=== PATIENT | female | born 1945 | race Caucasian/White ===

== ENCOUNTER → 2017-11-14 | Day surgery (SDC) | payer BC, SELFPAY | END | disposition home or self-care (01) | PROVIDERS: PCP Physician Assistant; Visit Provider Surgery | DX: Z12.11 Encounter for screening for malignant neoplasm of colon (principal); K57.30 Diverticulosis of large intestine without perforation or abscess without bleeding; K64.1 Second degree hemorrhoids | CPT/HCPCS: 45378; 99152; 99153; J2250; J2405; J3010 ==

== ENCOUNTER 2018-03-06 20:50 | Emergency (ER) | payer BC, SELFPAY ==
[2018-03-06 21:05] VITALS: BP 203/90; PULSE 87; RESP 20; TEMP 36.7; O2SAT 99; BMI 22.6
--- NOTE | 2018-03-06 21:19 | DI.CT.S_ITS ---
PROCEDURE: CT HEAD/BRAIN WO CON INDICATIONS: fall loc TECHNIQUE: Noncontrast 4.5 mm thick angled axial sections acquired from the foramen magnum to the vertex, with coronal and sagittal reformats. For radiation dose reduction, the following was used: automated exposure control, adjustment of mA and/or kV according to patient size. COMPARISON: None. FINDINGS: Image quality: Excellent. CSF spaces: Basal cisterns are patent. No extra-axial fluid collections. The ventricles are symmetric in size and shape. Brain: No intracranial bleeds or masses. There is cerebral volume loss for age, with resultant ventricular and sulcal prominence. There are periventricular and deep white matter chronic small vessel ischemic changes. There is intracranial internal carotid artery atherosclerosis. Skull and face: Calvarium and visualized facial bones appear intact, without suspicious lesions. Scalp laceration high midline posterior parietal area with slight subcutaneous gas. Sinuses: Visualized sinuses and mastoids are clear. IMPRESSION: No skull or brain parenchymal trauma found. Focal laceration to the midline high posterior parietal scalp. No underlying skull fracture found a small amount of gas in the soft tissues is noted. Note: These findings are concordant with the preliminary interpretation. Dictated by: Fabio Stanley M.D. on 03/07/2018 at 8:09 Approved by: Fabio Stanley M.D. on 03/07/2018 at 8:11
--- NOTE | 2018-03-06 21:19 | DI.CT.S_ITS ---
PROCEDURE: CT CERVICAL SPINE WO CON INDICATIONS: fall backwards,hit head TECHNIQUE: Noncontrast 3 mm thick sections acquired from the skull base to the T4 level. Sagittal and coronal reformats were then constructed. For radiation dose reduction, the following was used: automated exposure control, adjustment of mA and/or kV according to patient size. COMPARISON: None. FINDINGS: Image quality: Excellent. Bones: No fractures or dislocations. Visualized superior ribs are intact. Soft tissues: Prevertebral soft tissues are normal in thickness. No paravertebral hematomas. No apical pneumothoraces. IMPRESSION: No trauma found. Note: These findings are concordant with the preliminary interpretation. Dictated by: Fabio Stanley M.D. on 03/07/2018 at 8:11 Approved by: Fabio Stanley M.D. on 03/07/2018 at 8:16
--- NOTE | 2018-03-06 21:19 | ED_ITS ---
HPI - Fall General Chief Complaint: Fall Stated Complaint: FELL AND HIT BACK OF HEAD Time Seen by Provider: 03/06/18 21:14 Source: patient Mode of arrival: ambulatory Limitations: no limitations History of Present Illness HPI Narrative: Patient is a 72-year-old female who presents after a mechanical ground level fall. She stepped backwards on uneven cement is a she mostly fell onto her bottom and then fell promptly back hitting her head. Possible brief loss of consciousness. Now having severe headache and nausea. No weakness numbness or tingling. Her sacral area is also hurting her. She is ambulatory afterwards. complaint: fall Onset (ago): minute(s) Related Data Home Medications Medication Instructions Recorded Confirmed . (No Home Medications) #0 11/05/03 IBUPROFEN (Motrin / Advil) #0 11/05/03 NITROGLYCERIN (Nitrostat) #0 11/05/03 OMEPRAZOLE (Prilosec) #0 11/05/03 celecoxib [Celebrex] 100 mg PO [facility] #0 11/14/17 Allergies Allergy/AdvReac Type Severity Reaction Status Date / Time codeine Allergy Verified 03/06/18 21:05 Review of Systems Review of Systems All systems reviewed & are unremarkable except as noted in HPI and below Constitutional Denies chills, Denies fever(s), Reports headache(s), Denies lethargy and Denies weakness Eyes Denies change in vision, Denies eye discharge, Denies irritation and Denies loss of vision ENT Ears, Nose, Mouth, and Throat: Denies facial pain, Reports headache(s), Denies mouth pain and Denies neck pain Respiratory Denies cough and Denies stridor Gastrointestinal Gastrointestinal: Denies abdominal pain, Denies diarrhea and Denies vomiting Musculoskeletal Denies deformity, Reports arthralgias (right wrist pain) and Denies neck pain Integumentary/Breasts Reports system reviewed and no additional complaints, except as docu Neurologic Reports headache(s), Denies loss of vision and Denies weakness Exam Initial Vital Signs Initial Vital Signs: Vital Signs Temperature 98.0 F 03/06/18 21:05 Pulse Rate 87 03/06/18 21:05 Respiratory Rate 20 03/06/18 21:05 Blood Pressure 203/90 H 03/06/18 21:05 Pulse Oximetry 99 03/06/18 21:05 Const General: cooperative, healthy appearing and comfortable Orientation: alert, awake and oriented x3 HENMT Head: normocephalic (No crepitations no depression), laceration (Posterior scalp 1 and 0.5 cm), scalp lesion and scalp tenderness (posterior over laceration) Neck Neck: normal visual inspection, full ROM and trachea midline Chest Chest: normal inspection of the chest Resp Effort & Inspection: normal respiratory effort and able to speak in complete sentences Auscultation: clear to auscultation bilaterally Cardio Rate: regular rate Rhythm: regular rhythm Heart Sounds: S1 normal and S2 normal GI Palpation: No firm, No guarding and No tender Back/Spine/Pelvis Cervical Spine: normal cervical lordosis, cervical ROM normal, No cervical spinal tenderness and No step off deformity Thoracic/Lumbar Spine: thoracic and lumbar spine normal to inspection and other (Abrasion noted over spinal process is in thoracic region is) Sacrum: tenderness Skin General: No erythema Trauma: laceration (Posterior scalp) Neuro General: alert, awake and oriented x3 Cranial Nerves: CN's II-XI intact bilaterally Cognition: normal cognition Speech: speech normal Gait: normal gait Motor: muscle tone normal throughout and strength 5/5 throughout Sensory Exam: no sensory deficits noted Extrem General: normal to inspection Right upper extremity: normal to inspection Left upper extremity: normal to inspection Right lower extremity: normal to inspection Left lower extremity: normal to inspection [facility] Medical History Healthy adult (Acute) Social History marital status: other: works for [employer] Smoking Status: Never smoker Procedures Laceration Repair Laceration 1: Site: scalp Size (cm): 1.5 Description: linear Depth: simple, single layer Pre-repair: wound explored Skin layer closed with: other (Collins:# 2) Course Orders Ordered: ED Orders 03/06/18 21:19 CT cervical spine wo con Stat CT head/brain wo con Stat Discontinued Medications Acetaminophen (Tylenol) 650 mg PO NOW ONE Stop: 03/06/18 21:22 Last Admin: 03/06/18 21:26 Dose: 650 mg Diphtheria/Tetanus/Acell Pertussis (Adacel) 0.5 ml IM .ONCE ONE Stop: 03/06/18 23:32 Last Admin: 03/06/18 23:39 Dose: 0.5 ml Vital Signs - 8 hr 03/06/18 21:05 03/06/18 21:30 03/06/18 23:09 Temperature 98.0 F Pulse Rate 87 67 Respiratory Rate 20 14 Blood Pressure 203/90 H Blood Pressure [Right Arm] 156/74 H 143/68 H Pulse Oximetry 99 100 [facility] - Fall Imaging Data CT scan - head: 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 Scalp injury above. Posterior scalp injury with laceration contusion and foci of soft tissue emphysema. 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 [facility] Narrative Medical decision making narrative: Patient has no nausea vomiting. she does have a mild headache which she says Tylenol has helped a lot. Sacral x-ray was ordered all however unfortunately is did not get done. At the time of discharge patient is is standing. She is now stating that she does not want or need of a sacral x-ray. She is ambulatory and weight-bearing. I discussed all findings with the patient and spouse, Education has been performed regarding treatment plan, diagnosis, warning signs and symptoms and all concerns have been addressed. Verbally agree with and understood all of the above. Discharge Plan Departure Patient Disposition: Home, Self-Care Clinical Impression: Laceration of scalp, Closed head injury Discharge Date/Time: 03/06/18 23:50 Interventions: ED Discharge Assessment Last Done: 03/06/18 23:50 Instructions: DI for Laceration Repair -- Collins, Closed Head Injury Activity Restrictions/Additional Instructions: *You have been diagnosed with a closed head injury, scalp laceration *What to do: May wash hair with soap and water Have deacon removed in 5-7 days *Continue to take medications as directed -Tylenol or ibuprofen as directed if needed for pain *Follow up with your primary care provider in 2-3 days *Return to ER if you should have persistent vomiting, increasing headache, or any new, worsening or concerning symptoms Prescriptions: No Action . (No Home Medications) Qty: 0 RF: 0 IBUPROFEN (Motrin / Advil) Qty: 0 RF: 0 OMEPRAZOLE (Prilosec) Qty: 0 RF: 0 NITROGLYCERIN (Nitrostat) Qty: 0 RF: 0 celecoxib [Celebrex] 100 MG capsule 100 mg PO [facility] Qty: 0 RF: 0 Referrals: Ansley Armstrong PA-C [Primary Care Provider] - Stand Alone Forms: Work/School Restrictions
[2018-03-06] MEDS: ACETAMINOPHEN 325 MG TABLET 650 MG PO (21:26)
[2018-03-06 21:30] VITALS: BP 156/74
[2018-03-06 23:09] VITALS: BP 143/68; PULSE 67; RESP 14; O2SAT 100
[2018-03-06] MEDS: TET,DIPH,PERTUSS(ACELL),VAC/PF 0.5 ML SYRINGE IM (23:39)
== END 2018-03-06 23:50 | disposition home or self-care (01) ==
PROVIDERS: Emergency Provider Emergency Medicine; Family Provider Physician Assistant; PCP Physician Assistant
DX: S01.01XA Laceration without foreign body of scalp, initial encounter (principal); S09.90XA Unspecified injury of head, initial encounter; W18.30XA Fall on same level, unspecified, initial encounter
CPT/HCPCS: 12001; 70450; 72125; 90471; 99283; 90715

== ENCOUNTER → 2018-03-19 13:39 | Outpatient (CLI) | payer BC, SELFPAY ==
--- NOTE | 2018-03-19 | DI.RAD.S_ITS ---
PROCEDURE: XR WRIST RT MIN 3V INDICATIONS: RIGHT WRIST PAIN TECHNIQUE: 4 views of the wrist were acquired. COMPARISON: None. FINDINGS: Bones: No fractures or dislocations. No suspicious bony lesions. Moderate wrist osteoarthritis is present, best seen at the base of the first proximal phalanx and first metacarpal and along the inter-phalangeal joints distally. Scaphoid view: No trauma Soft tissues: No suspicious soft tissue calcifications. IMPRESSION: Osteoarthritic change but no trauma found. Dictated by: Fabio Stanley M.D. on 03/19/2018 at 15:41 Approved by: Fabio Stanley M.D. on 03/19/2018 at 15:41
== END ==
PROVIDERS: Family Provider Physician Assistant; PCP Physician Assistant; Visit Provider Physician Assistant
DX: M25.531 Pain in right wrist (principal); M19.031 Primary osteoarthritis, right wrist
CPT/HCPCS: 73110

== ENCOUNTER 2018-10-03 10:23 | Emergency (ER) | payer BC, SELFPAY ==
[2018-10-03 10:34] VITALS: BP 148/93; PULSE 90; RESP 16; TEMP 36.8; O2SAT 98; BMI 21.9
--- NOTE | 2018-10-03 12:06 | ED.HA ---
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 She was recently placed on Xarelto a few weeks ago due to the DVT. She states that her symptoms in her legs are improved with no pain or swelling at this timeframe. She is currently being followed by Dr. Scott for the DVT vein clinic in [place]. She called their office today and told her of her symptoms and was instructed to come to the emergency room for further evaluation. She is ambulatory in the emergency room. She denies any weakness to the extremities or any neurological deficits. No fevers no chills. She denies any trauma to the head. She is tolerating p.o. intake. No nausea or vomiting. She denies having any dysuria or urinary frequency. Pain is to the back of her head and is dull at this timeframe. She reports that the headache has been worse over the past couple of days but improved today she denies any stressors or relievers of her headache. No chest pain no shortness of breath. Complaint: headache Related Data Home Medications Medication Instructions Recorded Confirmed Vitamin D3 1 cap PO DAILY 10/03/18 10/03/18 ascorbic acid (vitamin C) 1 tab PO DAILY 10/03/18 10/03/18 calcium carbonate 1 tab PO DAILY 10/03/18 10/03/18 multivitamin 1 tab PO DAILY 10/03/18 10/03/18 rivaroxaban [Xarelto] 15 mg PO BID 10/03/18 10/03/18 Allergies Allergy/AdvReac Type Severity Reaction Status Date / Time codeine Allergy Verified 10/03/18 10:34 Review of Systems <MURPHY Caballero - Last Filed: 10/03/18 22:31> Constitutional Denies chills, Denies fever(s), Reports headache(s), Denies lethargy and Denies weakness Eyes Denies change in vision, Denies eye discharge, Denies irritation and Denies loss of vision ENT Ears, Nose, Mouth, and Throat: Denies change in voice, Reports headache(s), Denies neck pain and Denies sore throat Cardiovascular Denies chest pain, Denies irregular heart rhythm, Denies lightheadedness, Denies palpitations, Denies dyspnea, Denies dyspnea on exertion and Denies orthopnea Respiratory Denies cough, Denies dyspnea, Denies dyspnea on exertion and Denies wheezing Gastrointestinal Comments: Blood in stool Genitourinary Comments: Blood in urine Musculoskeletal Denies neck pain Integumentary/Breasts Denies pruritus, Denies erythema, Denies rash and Denies wounds Neurologic Reports headache(s), Denies loss of vision and Denies weakness Endocrine Denies palpitations Hematologic/Lymphatic Denies easy bruising Allergic/Immunologic Denies wheezing PFSH <MURPHY Caballero - Last Filed: 10/03/18 22:31> Medical History Healthy adult (Acute) Social History marital status: other: [place] Smoking Status: Never smoker Social History marital status: other: [place] Smoking Status: Never smoker Exam <MURPHY Caballero - Last Filed: 10/03/18 22:31> Initial Vital Signs Initial Vital Signs: Vital Signs Temperature 98.3 F 10/03/18 10:34 Pulse Rate 90 10/03/18 10:34 Respiratory Rate 16 10/03/18 10:34 Blood Pressure 148/93 H 10/03/18 10:34 Pulse Oximetry 98 10/03/18 10:34 Const General: cooperative and well developed Nutritional Appearance: well nourished Orientation: alert, awake, oriented x3 and not confused HENOR Mouth: oral mucosae normal and moist mucous membranes Eyes Conjunctivae: conjunctivae normal Sclera: sclerae normal Pupils: PERRL EOM: EOM intact bilaterally Neck Neck: normal visual inspection, trachea midline, No lymphadenopathy, No midline deformity and No JVD Lymphatic: No lymphedema Resp Effort & Inspection: normal respiratory effort, able to speak in complete sentences, no respiratory distress and no use of accessory muscles Auscultation: clear to auscultation bilaterally, no rales, no rhonchi and no wheezes Cardio Rate: regular rate Rhythm: regular rhythm Heart Sounds: no click, no gallops, no murmurs and no rubs Pulses: normal peripheral pulses Skin General: no rashes or lesions noted, No jaundice and No petechiae Neuro General: alert, oriented x3, gait normal and no focal motor deficits Speech: speech normal <Krystal Darden DO - Last Filed: 10/05/18 11:20> Initial Vital Signs Initial Vital Signs: Vital Signs Temperature 98.3 F 10/03/18 10:34 Pulse Rate 90 10/03/18 10:34 Respiratory Rate 16 10/03/18 10:34 Blood Pressure 148/93 H 10/03/18 10:34 Pulse Oximetry 98 10/03/18 10:34 Scores <MURPHY Caballero - Last Filed: 10/03/18 22:31> NIH Stroke Scale Level of Conciousness: Alert, keenly responsive Ask month/age: Answers both questions correctly. Open/close eyes, close hand: Performs both tasks correctly Best gaze horizontal: Normal Visual joseph: No visual loss Facial palsy: Normal symetrical movement Left arm drift: No drift for full 10 sec Right arm drift: No drift for full 10 sec Left leg drift: No drift for full 10 sec Right leg drift: No drift for full 10 sec Limb ataxia: Absent Sensory on face/arms/legs: Normal, no sensory loss Best language: No aphasia, normal Dysarthria: Normal Extinction or inattention: No abnormality Total NIH Stroke scale score: 0 Course <MURPHY Caballero - Last Filed: 10/03/18 22:31> Orders Ordered: ED Orders 10/03/18 11:30 Urine Microscopic Stat 10/03/18 12:32 CT head/brain wo con Stat 10/03/18 12:45 Complete Blood Count AUTO DIFF Stat Comprehensive Metabolic Panel Stat Prothrombin Time INR Stat Vital Signs - 8 hr 10/03/18 10:34 Temperature 98.3 F Pulse Rate 90 Respiratory Rate 16 Blood Pressure 148/93 H Pulse Oximetry 98 <Krystal Darden DO - Last Filed: 10/05/18 11:20> Orders Ordered: ED Orders 10/03/18 11:30 Urine Microscopic Stat 10/03/18 12:32 CT head/brain wo con Stat 10/03/18 12:45 Complete Blood Count AUTO DIFF Stat Comprehensive Metabolic Panel Stat Prothrombin Time INR Stat Vital Signs - 8 hr 10/03/18 10:34 Temperature 98.3 F Pulse Rate 90 Respiratory Rate 16 Blood Pressure 148/93 H Pulse Oximetry 98 MDM - Headache <Winston OneilMURPHY - Last Filed: 10/03/18 22:31> Lab Data Result diagrams: 10/03/18 12:45 10/03/18 12:45 Lab Results 10/03/18 10/03/18 10/03/18 Range/Units 11:30 12:45 12:45 WBC 5.3 (4.5-11.0) X10^3/uL RBC 4.00 (4.0-5.2) X10^6/uL Hgb 12.4 (12.0-16.0) g/dL Hct 37.3 (36-46) % MCV 93.2 (80-100) fL MCH 31.0 (26-34) PG MCHC 33.3 (30-36) % RDW 14.0 (11.6-14.8) % Plt Count 229 (150-400) X10^3/uL Neut % (Auto) 67.9 (50-75) % Lymph % (Auto) 20.6 L (25-40) % Madison % (Auto) 8.1 (3-14) % Eos % (Auto) 2.5 (2-4) % Baso % (Auto) 0.9 (0-2) % Neut # (Auto) 3600 (7671-0112) /uL Lymph # (Auto) 1100 (3185-3542) /uL Madison # (Auto) 400 (0-900) /uL Eos # (Auto) 100 (0-450) /uL Baso # (Auto) 0 (0-100) /uL PT 15.1 H (10.1-12.7) SECONDS INR 1.3 (0.9-1.3) Sodium (137-145) mmol/L Potassium (3.4-5.1) mmol/L Chloride (98-107) mmol/L Carbon Dioxide (22-32) mmol/L BUN (7-17) mg/dL Creatinine (0.52-1.04) mg/dL Estimated GFR (>60) mL/min BUN/Creatinine Ratio (6-22) Glucose (80-110) mg/dL Calcium (8.4-10.2) mg/dL Total Bilirubin (0.2-1.3) mg/dL AST (14-36) IU/L ALT (9-52) IU/L Alkaline Phosphatase (38-126) U/L Total Protein (6.3-8.2) g/dL Albumin (3.5-5.0) g/dL Globulin (1.7-4.1) g/dL Albumin/Globulin Ratio (1.0-2.8) Urine RBC 30-100/hpf H (0-5/HPF) Urine WBC 1-5/hpf (0-5/HPF) Urine Bacteria Moderate (10-30) H (None) Ur Culture Indicated? Cult not indicated 10/03/18 Range/Units 12:45 WBC (4.5-11.0) X10^3/uL RBC (4.0-5.2) X10^6/uL Hgb (12.0-16.0) g/dL Hct (36-46) % MCV (80-100) fL MCH (26-34) PG MCHC (30-36) % RDW (11.6-14.8) % Plt Count (150-400) X10^3/uL Neut % (Auto) (50-75) % Lymph % (Auto) (25-40) % Madison % (Auto) (3-14) % Eos % (Auto) (2-4) % Baso % (Auto) (0-2) % Neut # (Auto) (8193-3075) /uL Lymph # (Auto) (3777-8112) /uL Madison # (Auto) (0-900) /uL Eos # (Auto) (0-450) /uL Baso # (Auto) (0-100) /uL PT (10.1-12.7) SECONDS INR (0.9-1.3) Sodium 140 (137-145) mmol/L Potassium 4.0 (3.4-5.1) mmol/L Chloride 105 (98-107) mmol/L Carbon Dioxide 24 (22-32) mmol/L BUN 13 (7-17) mg/dL Creatinine 0.70 (0.52-1.04) mg/dL Estimated GFR > 60.0 (>60) mL/min BUN/Creatinine Ratio 18.6 (6-22) Glucose 98 (80-110) mg/dL Calcium 9.6 (8.4-10.2) mg/dL Total Bilirubin 0.4 (0.2-1.3) mg/dL AST 27 (14-36) IU/L ALT 22 (9-52) IU/L Alkaline Phosphatase 64 (38-126) U/L Total Protein 7.6 (6.3-8.2) g/dL Albumin 4.5 (3.5-5.0) g/dL Globulin 3.1 (1.7-4.1) g/dL Albumin/Globulin Ratio 1.5 (1.0-2.8) Urine RBC (0-5/HPF) Urine WBC (0-5/HPF) Urine Bacteria (None) Ur Culture Indicated? Urine Dip Bedside Urine Glucose Negative Bedside Urine Bilirubin - Negative Bedside Urine Ketone - Negative Urine Specific [place] 1.015 Bedside Urine Occult Blood +++ Bedside Urine pH 6.0 Bedside Urine Protein - Negative Bedside Urine Urobilinogen - Negative Bedside Urine Nitrite - Negative Bedside Urine Leukocytes - Negative Esterase Imaging Data CT scan - head: Radiologist's impression: [address] [address] [address] Scan Report Signed Patient: Jeanette Koch R#: [id number] : 4Acct:[id number] Age/Sex: 73 / FDate of Service: 10/03/18 Loc: ED Accession Number: [id number] Procedure: CT head/brain wo con Ordering Provider: Winston Oneil PROCEDURE: CT HEAD/BRAIN WO CON INDICATIONS: Headache last few days on Xarelto TECHNIQUE: Noncontrast 4.5 mm thick angled axial sections acquired from the foramen magnum to the vertex, with coronal and sagittal reformats. For radiation dose reduction, the following was used: automated exposure control, adjustment of mA and/or kV according to patient size. COMPARISON: [facility], CT, CT HEAD/BRAIN WO CON, 03/06/2018, 21:51. FINDINGS: Image quality: Excellent. CSF spaces: Basal cisterns are patent. No extra-axial fluid collections. The ventricles are symmetric in size and shape. Brain: No intracranial bleeds or masses. There is cerebral volume loss for age, with resultant ventricular and sulcal prominence. There are periventricular and deep white matter chronic small vessel ischemic changes. There is intracranial internal carotid artery atherosclerosis. Skull and face: Calvarium and visualized facial bones appear intact, without suspicious lesions. Sinuses: Visualized sinuses and mastoids are clear. IMPRESSION: No CT evidence of acute intracranial pathology. Age-appropriate atrophy and mild periventricular white matter microangiopathic changes. Dictated by: Tate Guzmán M.D. on 10/03/2018 at 12:38 Approved by: Tate Guzmán M.D. on 10/03/2018 at 12:39 [facility] Narrative Medical decision making narrative: CT scan of the head was obtained and was negative for any acute findings. CBC was obtained was unremarkable. Chem panel was obtained was also unremarkable. INR was at 1.3. Urinalysis shows positive red blood cells. Stool guaiac was positive. Discussed case with Dr. Scott who recommends stopping the Xarelto at this point. He will follow up with her in the next day or 2 for re-evaluation. The patient will call for an appointment. [id number] Tylenol as needed for any discomfort. Differential of headache is tension type headache as patient does report being more anxious over the past couple weeks due to recent illnesses. For any worsening or problems return to the emergency room. <Krystal Darden, - Last Filed: 10/05/18 11:20> Lab Data Lab Results 10/03/18 10/03/18 10/03/18 Range/Units 11:30 12:45 12:45 WBC 5.3 (4.5-11.0) X10^3/uL RBC 4.00 (4.0-5.2) X10^6/uL Hgb 12.4 (12.0-16.0) g/dL Hct 37.3 (36-46) % MCV 93.2 (80-100) fL MCH 31.0 (26-34) PG MCHC 33.3 (30-36) % RDW 14.0 (11.6-14.8) % Plt Count 229 (150-400) X10^3/uL Neut % (Auto) 67.9 (50-75) % Lymph % (Auto) 20.6 L (25-40) % Madison % (Auto) 8.1 (3-14) % Eos % (Auto) 2.5 (2-4) % Baso % (Auto) 0.9 (0-2) % Neut # (Auto) 3600 (6621-7497) /uL Lymph # (Auto) 1100 (7185-8177) /uL Madison # (Auto) 400 (0-900) /uL Eos # (Auto) 100 (0-450) /uL Baso # (Auto) 0 (0-100) /uL PT 15.1 H (10.1-12.7) SECONDS INR 1.3 (0.9-1.3) Sodium (137-145) mmol/L Potassium (3.4-5.1) mmol/L Chloride (98-107) mmol/L Carbon Dioxide (22-32) mmol/L BUN (7-17) mg/dL Creatinine (0.52-1.04) mg/dL Estimated GFR (>60) mL/min BUN/Creatinine Ratio (6-22) Glucose (80-110) mg/dL Calcium (8.4-10.2) mg/dL Total Bilirubin (0.2-1.3) mg/dL AST (14-36) IU/L ALT (9-52) IU/L Alkaline Phosphatase (38-126) U/L Total Protein (6.3-8.2) g/dL Albumin (3.5-5.0) g/dL Globulin (1.7-4.1) g/dL Albumin/Globulin Ratio (1.0-2.8) Urine RBC 30-100/hpf H (0-5/HPF) Urine WBC 1-5/hpf (0-5/HPF) Urine Bacteria Moderate (10-30) H (None) Ur Culture Indicated? Cult not indicated 10/03/18 Range/Units 12:45 WBC (4.5-11.0) X10^3/uL RBC (4.0-5.2) X10^6/uL Hgb (12.0-16.0) g/dL Hct (36-46) % MCV (80-100) fL MCH (26-34) PG MCHC (30-36) % RDW (11.6-14.8) % Plt Count (150-400) X10^3/uL Neut % (Auto) (50-75) % Lymph % (Auto) (25-40) % Madison % (Auto) (3-14) % Eos % (Auto) (2-4) % Baso % (Auto) (0-2) % Neut # (Auto) (4322-2165) /uL Lymph # (Auto) (0127-1190) /uL Madison # (Auto) (0-900) /uL Eos # (Auto) (0-450) /uL Baso # (Auto) (0-100) /uL PT (10.1-12.7) SECONDS INR (0.9-1.3) Sodium 140 (137-145) mmol/L Potassium 4.0 (3.4-5.1) mmol/L Chloride 105 (98-107) mmol/L Carbon Dioxide 24 (22-32) mmol/L BUN 13 (7-17) mg/dL Creatinine 0.70 (0.52-1.04) mg/dL Estimated GFR > 60.0 (>60) mL/min BUN/Creatinine Ratio 18.6 (6-22) Glucose 98 (80-110) mg/dL Calcium 9.6 (8.4-10.2) mg/dL Total Bilirubin 0.4 (0.2-1.3) mg/dL AST 27 (14-36) IU/L ALT 22 (9-52) IU/L Alkaline Phosphatase 64 (38-126) U/L Total Protein 7.6 (6.3-8.2) g/dL Albumin 4.5 (3.5-5.0) g/dL Globulin 3.1 (1.7-4.1) g/dL Albumin/Globulin Ratio 1.5 (1.0-2.8) Urine RBC (0-5/HPF) Urine WBC (0-5/HPF) Urine Bacteria (None) Ur Culture Indicated? Urine Dip Bedside Urine Glucose Negative Bedside Urine Bilirubin - Negative Bedside Urine Ketone - Negative Urine Specific [place] 1.015 Bedside Urine Occult Blood +++ Bedside Urine pH 6.0 Bedside Urine Protein - Negative Bedside Urine Urobilinogen - Negative Bedside Urine Nitrite - Negative Bedside Urine Leukocytes - Negative Esterase Discharge Plan Departure Patient Disposition: Home Clinical Impression: Headache Qualifiers: Headache type: unspecified Headache chronicity pattern: acute headache Intractability: not intractable Qualified Code(s): R51 - Headache Hematuria Qualifiers: Hematuria type: unspecified type Qualified Code(s): R31.9 - Hematuria, unspecified Discharge Date/Time: 10/03/18 14:11 Interventions: ED Discharge Assessment Last Done: 10/03/18 14:09 Instructions: DI for Headache Activity Restrictions/Additional Instructions: Laboratory results show that there is some blood in her urine and also stool. Other laboratory results today were unremarkable. CT scan of the head was obtained and was negative for any acute findings. Stop using the Xarelto. Follow up with Dr. Scott in the next day or 2 for re-evaluation. Differential of headache cause is a tension-type headache. Use [id number] Tylenol as needed for any discomfort. Gentle range of motion stretching to the neck and back of the scalp. For any worsening symptoms return to the emergency room. Follow up with primary care provider. Prescriptions: No Action Xarelto 15 mg tablet 15 mg PO BID RF: 0 multivitamin Tablet 1 tab PO DAILY RF: 0 Vitamin D3 1 cap PO DAILY RF: 0 ascorbic acid (vitamin C) 1 tab PO DAILY RF: 0 calcium carbonate 1 tab PO DAILY RF: 0 Referrals: Ansley Armstrong PA-C [Primary Care Provider] - <Krystal Darden DO - Last Filed: 10/05/18 11:20> Cosign ED Attending Cosignature Attestation: I was immediately available in the department for consultation. This documentation has been reviewed and I agree with assessment and plan. Supervised by Krystal Darden DO
--- NOTE | 2018-10-03 12:32 | DI.CT.S_ITS ---
PROCEDURE: CT HEAD/BRAIN WO CON INDICATIONS: Headache last few days on Xarelto TECHNIQUE: Noncontrast 4.5 mm thick angled axial sections acquired from the foramen magnum to the vertex, with coronal and sagittal reformats. For radiation dose reduction, the following was used: automated exposure control, adjustment of mA and/or kV according to patient size. COMPARISON: [facility], CT, CT HEAD/BRAIN WO CON, 03/06/2018, 21:51. FINDINGS: Image quality: Excellent. CSF spaces: Basal cisterns are patent. No extra-axial fluid collections. The ventricles are symmetric in size and shape. Brain: No intracranial bleeds or masses. There is cerebral volume loss for age, with resultant ventricular and sulcal prominence. There are periventricular and deep white matter chronic small vessel ischemic changes. There is intracranial internal carotid artery atherosclerosis. Skull and face: Calvarium and visualized facial bones appear intact, without suspicious lesions. Sinuses: Visualized sinuses and mastoids are clear. IMPRESSION: No CT evidence of acute intracranial pathology. Age-appropriate atrophy and mild periventricular white matter microangiopathic changes. Dictated by: Tate Guzmán M.D. on 10/03/2018 at 12:38 Approved by: Tate Guzmán M.D. on 10/03/2018 at 12:39
[2018-10-03 12:57] LABS: INR 1.3 (0.9-1.3); Prothrombin Time 15.1 SECONDS (10.1-12.7)
[2018-10-03 12:59] LABS: Add Manual Diff / Slide Review NO; Basophils Absolute Auto 0 /uL (0-100); Basophils Percent Auto 0.9 % (0-2); Eosinophils Absolute Auto 100 /uL (0-450); Eosinophils Percent Auto 2.5 % (2-4); Hematocrit 37.3 % (36-46); Hemoglobin 12.4 g/dL (12.0-16.0); Lymphocytes Absolute Auto 1100 /uL (1100-4500); Lymphocytes Percent Auto 20.6 % (25-40); Mean Corpuscular HGB Conc 33.3 % (30-36); Mean Corpuscular Volume 93.2 fL (80-100); Monocytes Absolute Auto 400 /uL (0-900); Monocytes Percent Auto 8.1 % (3-14); Neutrophils Absolute Auto 3600 /uL (1500-7000); Neutrophils Percent Auto 67.9 % (50-75); Platelet Count 229 X10^3/uL (150-400); White Blood Cell Count 5.3 X10^3/uL (4.5-11.0)
[2018-10-03 13:01] LABS: Alanine Aminotransferase 22 IU/L (9-52); Albumin 4.5 g/dL (3.5-5.0); Albumin Globulin Ratio 1.5 (1.0-2.8); Alkaline Phosphatase 64 U/L (38-126); Aspartate Aminotransferase 27 IU/L (14-36); BUN Creatinine Ratio 18.6 (6-22); Bilirubin Total 0.4 mg/dL (0.2-1.3); Blood Urea Nitrogen 13 mg/dL (7-17); Calcium 9.6 mg/dL (8.4-10.2); Carbon Dioxide 24 mmol/L (22-32); Chloride 105 mmol/L (98-107); Estimated Glomerular Filt Rate > 60.0 mL/min (>60); Globulin 3.1 g/dL (1.7-4.1); Glucose 98 mg/dL (80-110); HEMOLYSIS < 15 (0-50); Sodium 140 mmol/L (137-145); Total Protein 7.6 g/dL (6.3-8.2)
[2018-10-03 13:29] LABS: RBC Urine 30-100/HPF (0-5/HPF); WBC Urine 1-5/HPF (0-5/HPF)
[2018-10-03 13:30] LABS: Bacteria Urine Moderate (10-30); Culture Indicated Urine Cult Not Indicated
--- NOTE | 2018-10-03 13:49 | ED_ITS ---
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 She was recently placed on Xarelto a few weeks ago due to the DVT. She states that her symptoms in her legs are improved with no pain or swelling at this timeframe. She is currently being followed by Dr. Scott for the [facility] in [place]. She called their office today and told her of her symptoms and was instructed to come to the emergency room for further evaluation. She is ambulatory in the emergency room. She denies any weakness to the extremities or any neurological deficits. No fevers no chills. She denies any trauma to the head. She is tolerating p.o. intake. No nausea or vomiting. She denies having any dysuria or urinary frequency. Pain is to the back of her head and is dull at this timeframe. She reports that the headache has been worse over the past couple of days but improved today she denies any stressors or relievers of her headache. No chest pain no shortness of breath. Complaint: headache Related Data Home Medications Medication Instructions Recorded Confirmed Vitamin D3 1 cap PO DAILY 10/03/18 10/03/18 ascorbic acid (vitamin C) 1 tab PO DAILY 10/03/18 10/03/18 calcium carbonate 1 tab PO DAILY 10/03/18 10/03/18 multivitamin 1 tab PO DAILY 10/03/18 10/03/18 rivaroxaban [Xarelto] 15 mg PO BID 10/03/18 10/03/18 Allergies Allergy/AdvReac Type Severity Reaction Status Date / Time codeine Allergy Verified 10/03/18 10:34 Review of Systems <MURPHY Caballero - Last Filed: 10/03/18 22:31> Constitutional Denies chills, Denies fever(s), Reports headache(s), Denies lethargy and Denies weakness Eyes Denies change in vision, Denies eye discharge, Denies irritation and Denies loss of vision ENT Ears, Nose, Mouth, and Throat: Denies change in voice, Reports headache(s), Denies neck pain and Denies sore throat Cardiovascular Denies chest pain, Denies irregular heart rhythm, Denies lightheadedness, Denies palpitations, Denies dyspnea, Denies dyspnea on exertion and Denies orthopnea Respiratory Denies cough, Denies dyspnea, Denies dyspnea on exertion and Denies wheezing Gastrointestinal Comments: Blood in stool Genitourinary Comments: Blood in urine Musculoskeletal Denies neck pain Integumentary/Breasts Denies pruritus, Denies erythema, Denies rash and Denies wounds Neurologic Reports headache(s), Denies loss of vision and Denies weakness Endocrine Denies palpitations Hematologic/Lymphatic Denies easy bruising Allergic/Immunologic Denies wheezing PFSH <MURPHY Caballero - Last Filed: 10/03/18 22:31> Medical History Healthy adult (Acute) Social History marital status: other: [employer] Games Smoking Status: Never smoker Social History marital status: other: [employer] Smoking Status: Never smoker Exam <MURPHY Caballero - Last Filed: 10/03/18 22:31> Initial Vital Signs Initial Vital Signs: Vital Signs Temperature 98.3 F 10/03/18 10:34 Pulse Rate 90 10/03/18 10:34 Respiratory Rate 16 10/03/18 10:34 Blood Pressure 148/93 H 10/03/18 10:34 Pulse Oximetry 98 10/03/18 10:34 Const General: cooperative and well developed Nutritional Appearance: well nourished Orientation: alert, awake, oriented x3 and not confused HENNC Mouth: oral mucosae normal and moist mucous membranes Eyes Conjunctivae: conjunctivae normal Sclera: sclerae normal Pupils: PERRL EOM: EOM intact bilaterally Neck Neck: normal visual inspection, trachea midline, No lymphadenopathy, No midline deformity and No JVD Lymphatic: No lymphedema Resp Effort & Inspection: normal respiratory effort, able to speak in complete sente nces, no respiratory distress and no use of accessory muscles Auscultation: clear to auscultation bilaterally, no rales, no rhonchi and no wheezes Cardio Rate: regular rate Rhythm: regular rhythm Heart Sounds: no click, no gallops, no murmurs and no rubs Pulses: normal peripheral pulses Skin General: no rashes or lesions noted, No jaundice and No petechiae Neuro General: alert, oriented x3, gait normal and no focal motor deficits Speech: speech normal <Krystal Darden DO - Last Filed: 10/05/18 11:20> Initial Vital Signs Initial Vital Signs: Vital Signs Temperature 98.3 F 10/03/18 10:34 Pulse Rate 90 10/03/18 10:34 Respiratory Rate 16 10/03/18 10:34 Blood Pressure 148/93 H 10/03/18 10:34 Pulse Oximetry 98 10/03/18 10:34 Scores <MURPHY Caballero - Last Filed: 10/03/18 22:31> NIH Stroke Scale Level of Conciousness: Alert, keenly responsive Ask month/age: Answers both questions correctly. Open/close eyes, close hand: Performs both tasks correctly Best gaze horizontal: Normal Visual joseph: No visual loss Facial palsy: Normal symetrical movement Left arm drift: No drift for full 10 sec Right arm drift: No drift for full 10 sec Left leg drift: No drift for full 10 sec Right leg drift: No drift for full 10 sec Limb ataxia: Absent Sensory on face/arms/legs: Normal, no sensory loss Best language: No aphasia, normal Dysarthria: Normal Extinction or inattention: No abnormality Total NIH Stroke scale score: 0 Course <MURPHY Caballero - Last Filed: 10/03/18 22:31> Orders Ordered: ED Orders 10/03/18 11:30 Urine Microscopic Stat 10/03/18 12:32 CT head/brain wo con Stat 10/03/18 12:45 Complete Blood Count AUTO DIFF Stat Comprehensive Metabolic Panel Stat Prothrombin Time INR Stat Vital Signs - 8 hr 10/03/18 10:34 Temperature 98.3 F Pulse Rate 90 Respiratory Rate 16 Blood Pressure 148/93 H Pulse Oximetry 98 <Krystal Darden DO - Last Filed: 10/05/18 11:20> Orders Ordered: ED Orders 10/03/18 11:30 Urine Microscopic Stat 10/03/18 12:32 CT head/brain wo con Stat 10/03/18 12:45 Complete Blood Count AUTO DIFF Stat Comprehensive Metabolic Panel Stat Prothrombin Time INR Stat Vital Signs - 8 hr 10/03/18 10:34 Temperature 98.3 F Pulse Rate 90 Respiratory Rate 16 Blood Pressure 148/93 H Pulse Oximetry 98 MDM - Headache <Winston OneilMURPHY - Last Filed: 10/03/18 22:31> Lab Data Result diagrams: 10/03/18 12:45 10/03/18 12:45 Lab Results 10/03/18 10/03/18 10/03/18 Range/Units 11:30 12:45 12:45 WBC 5.3 (4.5-11.0) X10^3/uL RBC 4.00 (4.0-5.2) X10^6/uL Hgb 12.4 (12.0-16.0) g/dL Hct 37.3 (36-46) % MCV 93.2 (80-100) fL MCH 31.0 (26-34) PG MCHC 33.3 (30-36) % RDW 14.0 (11.6-14.8) % Plt Count 229 (150-400) X10^3/uL Neut % (Auto) 67.9 (50-75) % Lymph % (Auto) 20.6 L (25-40) % Rich % (Auto) 8.1 (3-14) % Eos % (Auto) 2.5 (2-4) % Baso % (Auto) 0.9 (0-2) % Neut # (Auto) 3600 (6299-7252) /uL Lymph # (Auto) 1100 (2651-6824) /uL Rich # (Auto) 400 (0-900) /uL Eos # (Auto) 100 (0-450) /uL Baso # (Auto) 0 (0-100) /uL PT 15.1 H (10.1-12.7) SECONDS INR 1.3 (0.9-1.3) Sodium (137-145) mmol/L Potassium (3.4-5.1) mmol/L Chloride (98-107) mmol/L Carbon Dioxide (22-32) mmol/L BUN (7-17) mg/dL Creatinine (0.52-1.04) mg/dL Estimated GFR (>60) mL/min BUN/Creatinine Ratio (6-22) Glucose (80-110) mg/dL Calcium (8.4-10.2) mg/dL Total Bilirubin (0.2-1.3) mg/dL AST (14-36) IU/L ALT (9-52) IU/L Alkaline Phosphatase (38-126) U/L Total Protein (6.3-8.2) g/dL Albumin (3.5-5.0) g/dL Globulin (1.7-4.1) g/dL Albumin/Globulin Ratio (1.0-2.8) Urine RBC 30-100/hpf H (0-5/HPF) Urine WBC 1-5/hpf (0-5/HPF) Urine Bacteria Moderate (10-30) H (None) Ur Culture Indicated? Cult not indicated 10/03/18 Range/Units 12:45 WBC (4.5-11.0) X10^3/uL RBC (4.0-5.2) X10^6/uL Hgb (12.0-16.0) g/dL Hct (36-46) % MCV (80-100) fL MCH (26-34) PG MCHC (30-36) % RDW (11.6-14.8) % Plt Count (150-400) X10^3/uL Neut % (Auto) (50-75) % Lymph % (Auto) (25-40) % Rich % (Auto) (3-14) % Eos % (Auto) (2-4) % Baso % (Auto) (0-2) % Neut # (Auto) (1242-7994) /uL Lymph # (Auto) (3531-0216) /uL Rich # (Auto) (0-900) /uL Eos # (Auto) (0-450) /uL Baso # (Auto) (0-100) /uL PT (10.1-12.7) SECONDS INR (0.9-1.3) Sodium 140 (137-145) mmol/L Potassium 4.0 (3.4-5.1) mmol/L Chloride 105 (98-107) mmol/L Carbon Dioxide 24 (22-32) mmol/L BUN 13 (7-17) mg/dL Creatinine 0.70 (0.52-1.04) mg/dL Estimated GFR > 60.0 (>60) mL/min BUN/Creatinine Ratio 18.6 (6-22) Glucose 98 (80-110) mg/dL Calcium 9.6 (8.4-10.2) mg/dL Total Bilirubin 0.4 (0.2-1.3) mg/dL AST 27 (14-36) IU/L ALT 22 (9-52) IU/L Alkaline Phosphatase 64 (38-126) U/L Total Protein 7.6 (6.3-8.2) g/dL Albumin 4.5 (3.5-5.0) g/dL Globulin 3.1 (1.7-4.1) g/dL Albumin/Globulin Ratio 1.5 (1.0-2.8) Urine RBC (0-5/HPF) Urine WBC (0-5/HPF) Urine Bacteria (None) Ur Culture Indicated? Urine Dip Bedside Urine Glucose Negative Bedside Urine Bilirubin - Negative Bedside Urine Ketone - Negative Urine Specific [place] 1.015 Bedside Urine Occult Blood +++ Bedside Urine pH 6.0 Bedside Urine Protein - Negative Bedside Urine Urobilinogen - Negative Bedside Urine Nitrite - Negative Bedside Urine Leukocytes - Negative Esterase Imaging Data CT scan - head: Radiologist's impression: [address] [address] [address] Scan Report Signed Patient: Jeanette Koch R#: [id number] : 4Acct:[id number] Age/Sex: 73 / FDate of Service: 10/03/18 Loc: ED Accession Number: [id number] Procedure: CT head/brain wo con Ordering Provider: Winston Oneil PROCEDURE: CT HEAD/BRAIN WO CON INDICATIONS: Headache last few days on Xarelto TECHNIQUE: Noncontrast 4.5 mm thick angled axial sections acquired from the foramen magnum to the vertex, with coronal and sagittal reformats. For radiation dose reduction, the following was used: automated exposure control, adjustment of mA and/or kV according to patient size. COMPARISON: [facility], CT, CT HEAD/BRAIN WO CON, 03/06/2018, 21:51. FINDINGS: Image quality: Excellent. CSF spaces: Basal cisterns are patent. No extra-axial fluid collections. The ventricles are symmetric in size and shape. Brain: No intracranial bleeds or masses. There is cerebral volume loss for age, with resultant ventricular and sulcal prominence. There are periventricular and deep white matter chronic small vessel ischemic changes. There is intracranial internal carotid artery atherosclerosis. Skull and face: Calvarium and visualized facial bones appear intact, without suspicious lesions. Sinuses: Visualized sinuses and mastoids are clear. IMPRESSION: No CT evidence of acute intracranial pathology. Age-appropriate atrophy and mild periventricular white matter microangiopathic changes. Dictated by: Tate Guzmán M.D. on 10/03/2018 at 12:38 Approved by: Tate Guzmán M.D. on 10/03/2018 at 12:39 [facility] Narrative Medical decision making narrative: CT scan of the head was obtained and was negative for any acute findings. CBC was obtained was unremarkable. Chem panel was obtained was also unremarkable. INR was at 1.3. Urinalysis shows positive red blood cells. Stool guaiac was positive. Discussed case with Dr. Scott who recommends stopping the Xarelto at this point. He will follow up with her in the next day or 2 for re-evaluation. The patient will call for an appointment. [id number] Tylenol as needed for any discomfort. Differential of headache is tension type headache as patient does report being more anxious over the past couple weeks due to recent illnesses. For any worsening or problems return to the emergency room. <Krystal Darden, - Last Filed: 10/05/18 11:20> Lab Data Lab Results 10/03/18 10/03/18 10/03/18 Range/Units 11:30 12:45 12:45 WBC 5.3 (4.5-11.0) X10^3/uL RBC 4.00 (4.0-5.2) X10^6/uL Hgb 12.4 (12.0-16.0) g/dL Hct 37.3 (36-46) % MCV 93.2 (80-100) fL MCH 31.0 (26-34) PG MCHC 33.3 (30-36) % RDW 14.0 (11.6-14.8) % Plt Count 229 (150-400) X10^3/uL Neut % (Auto) 67.9 (50-75) % Lymph % (Auto) 20.6 L (25-40) % Rich % (Auto) 8.1 (3-14) % Eos % (Auto) 2.5 (2-4) % Baso % (Auto) 0.9 (0-2) % Neut # (Auto) 3600 (5895-1248) /uL Lymph # (Auto) 1100 (6733-1176) /uL Rich # (Auto) 400 (0-900) /uL Eos # (Auto) 100 (0-450) /uL Baso # (Auto) 0 (0-100) /uL PT 15.1 H (10.1-12.7) SECONDS INR 1.3 (0.9-1.3) Sodium (137-145) mmol/L Potassium (3.4-5.1) mmol/L Chloride (98-107) mmol/L Carbon Dioxide (22-32) mmol/L BUN (7-17) mg/dL Creatinine (0.52-1.04) mg/dL Estimated GFR (>60) mL/min BUN/Creatinine Ratio (6-22) Glucose (80-110) mg/dL Calcium (8.4-10.2) mg/dL Total Bilirubin (0.2-1.3) mg/dL AST (14-36) IU/L ALT (9-52) IU/L Alkaline Phosphatase (38-126) U/L Total Protein (6.3-8.2) g/dL Albumin (3.5-5.0) g/dL Globulin (1.7-4.1) g/dL Albumin/Globulin Ratio (1.0-2.8) Urine RBC 30-100/hpf H (0-5/HPF) Urine WBC 1-5/hpf (0-5/HPF) Urine Bacteria Moderate (10-30) H (None) Ur Culture Indicated? Cult not indicated 10/03/18 Range/Units 12:45 WBC (4.5-11.0) X10^3/uL RBC (4.0-5.2) X10^6/uL Hgb (12.0-16.0) g/dL Hct (36-46) % MCV (80-100) fL MCH (26-34) PG MCHC (30-36) % RDW (11.6-14.8) % Plt Count (150-400) X10^3/uL Neut % (Auto) (50-75) % Lymph % (Auto) (25-40) % Rich % (Auto) (3-14) % Eos % (Auto) (2-4) % Baso % (Auto) (0-2) % Neut # (Auto) (8235-2420) /uL Lymph # (Auto) (3424-7961) /uL Rich # (Auto) (0-900) /uL Eos # (Auto) (0-450) /uL Baso # (Auto) (0-100) /uL PT (10.1-12.7) SECONDS INR (0.9-1.3) Sodium 140 (137-145) mmol/L Potassium 4.0 (3.4-5.1) mmol/L Chloride 105 (98-107) mmol/L Carbon Dioxide 24 (22-32) mmol/L BUN 13 (7-17) mg/dL Creatinine 0.70 (0.52-1.04) mg/dL Estimated GFR > 60.0 (>60) mL/min BUN/Creatinine Ratio 18.6 (6-22) Glucose 98 (80-110) mg/dL Calcium 9.6 (8.4-10.2) mg/dL Total Bilirubin 0.4 (0.2-1.3) mg/dL AST 27 (14-36) IU/L ALT 22 (9-52) IU/L Alkaline Phosphatase 64 (38-126) U/L Total Protein 7.6 (6.3-8.2) g/dL Albumin 4.5 (3.5-5.0) g/dL Globulin 3.1 (1.7-4.1) g/dL Albumin/Globulin Ratio 1.5 (1.0-2.8) Urine RBC (0-5/HPF) Urine WBC (0-5/HPF) Urine Bacteria (None) Ur Culture Indicated? Urine Dip Bedside Urine Glucose Negative Bedside Urine Bilirubin - Negative Bedside Urine Ketone - Negative Urine Specific [place] 1.015 Bedside Urine Occult Blood +++ Bedside Urine pH 6.0 Bedside Urine Protein - Negative Bedside Urine Urobilinogen - Negative Bedside Urine Nitrite - Negative Bedside Urine Leukocytes - Negative Esterase Discharge Plan Departure Patient Disposition: Home Clinical Impression: Headache Qualifiers: Headache type: unspecified Headache chronicity pattern: acute headache Intractability: not intractable Qualified Code(s): R51 - Headache Hematuria Qualifiers: Hematuria type: unspecified type Qualified Code(s): R31.9 - Hematuria, unspecified Discharge Date/Time: 10/03/18 14:11 Interventions: ED Discharge Assessment Last Done: 10/03/18 14:09 Instructions: DI for Headache Activity Restrictions/Additional Instructions: Laboratory results show that there is some blood in her urine and also stool. Other laboratory results today were unremarkable. CT scan of the head was obtained and was negative for any acute findings. Stop using the Xarelto. Follow up with Dr. Scott in the next day or 2 for re-evaluation. Differential of headache cause is a tension-type headache. Use [id number] Tylenol as needed for any discomfort. Gentle range of motion stretching to the neck and back of the scalp. For any worsening symptoms return to the emergency room. Follow up with primary care provider. Prescriptions: No Action Xarelto 15 mg tablet 15 mg PO BID RF: 0 multivitamin Tablet 1 tab PO DAILY RF: 0 Vitamin D3 1 cap PO DAILY RF: 0 ascorbic acid (vitamin C) 1 tab PO DAILY RF: 0 calcium carbonate 1 tab PO DAILY RF: 0 Referrals: Ansley Armstrong PA-C [Primary Care Provider] - <Krystal Darden DO - Last Filed: 10/05/18 11:20> Cosign ED Attending Cosignature Attestation: I was immediately available in the department for consultation. This documentation has been reviewed and I agree with assessment and plan. Supervised by Krystal Darden DO
[2018-10-03 14:09] VITALS: BP 140/76; PULSE 73; RESP 15; O2SAT 100
== END 2018-10-03 14:11 | disposition home or self-care (01) ==
PROVIDERS: Emergency Provider Nurse Practitioner Family; Family Provider Physician Assistant; PCP Physician Assistant
DX: R51 Headache (principal)
CPT/HCPCS: 36591; 70450; 80053; 81003; 81015; 85025; 85610; 99282; 99285

== ENCOUNTER → 2020-11-27 12:41 | Outpatient (CLI) | payer OTHER, SELFPAY ==
[2020-11-27 12:58] LABS: Hematocrit 36.5 % (36-46); Hemoglobin 12.2 g/dL (12.0-16.0); Mean Corpuscular HGB Conc 33.5 % (30-36); Mean Corpuscular Hemoglobin 31.1 PG (26-34); Mean Corpuscular Volume 92.7 fL (80-100); Platelet Count 201 X10^3/uL (150-400); Red Blood Cell Count 3.94 X10^6/uL (4.0-5.2); Red Cell Distribution Width 13.7 % (11.6-14.8); White Blood Cell Count 5.1 X10^3/uL (4.5-11.0)
[2020-11-27 13:07] LABS: INR 0.9 (0.9-1.3); Prothrombin Time 10.6 SECONDS (10.1-12.7)
[2020-11-27 13:10] LABS: D Dimer < 200 ng/mL (<230); PTT Partial Thromboplastin Tim 31 SECONDS (26.4-36.2)
== END ==
PROVIDERS: Family Provider Physician Assistant; PCP Student in an Organized Health Care Education/Training Program; Referring Provider Student in an Organized Health Care Education/Training Program; Visit Provider Student in an Organized Health Care Education/Training Program
DX: M79.89 Other specified soft tissue disorders (principal)
CPT/HCPCS: 36415; 85027; 85379; 85610; 85730

== ENCOUNTER → 2020-12-31 09:33 | Outpatient (CLI) | payer OTHER, SELFPAY | PROVIDERS: Family Provider Physician Assistant; PCP Student in an Organized Health Care Education/Training Program; Referring Provider Student in an Organized Health Care Education/Training Program; Visit Provider Student in an Organized Health Care Education/Training Program | DX: M85.851 Other specified disorders of bone density and structure, right thigh (principal); Z78.0 Asymptomatic menopausal state | CPT/HCPCS: 77080 ==

== ENCOUNTER → 2022-10-14 14:52 | Outpatient (CLI) | payer OTHER, SELFPAY ==
--- NOTE | 2022-10-14 15:36 | DI.DEXA.S_ITS ---
Indication: osteopenia; Referring Provider: BRYANT RICHARDSON Study: Bone densitometry was performed. Exam Date: October 14, 2022 Accession number: [id number] Bone Density: Region BMD T-score Z-score Classification AP Spine(L1-L4) 0.874 -1.6 1.1 Osteopenia Femoral Neck (Left) 0.707 -1.3 1.0 Osteopenia Total Hip (Left) 0.681 -2.1 -0.1 Osteopenia Femoral Neck (Right) 0.640 -1.9 0.4 Osteopenia Total Hip (Right) 0.637 -2.5 -0.5 Osteoporosis Total Hip Mean 0.659 -2.3 -0.3 Osteopenia World Health Organization criteria for BMD impression classify patients as: Normal (T-score at or above -1.0), Osteopenia (T-score between -1.0 and -2.5), or Osteoporosis (T-score at or below -2.5). 10-year Fracture Risk: FRAX not reported because: Some T-score for Spine Total or Hip Total or Femoral Neck at or below -2.5 Previous Exams: -- Region Exam Age BMD T-score BMD Change BMD Change Date g/cm2 vs Baseline vs Previous -- AP Spine (L1-L4) 10/14/2022 77 0.874 -1.6 -0.064 (-6.8%)# -0.064 (-6.8%)# 12/31/2020 75 0.937 -1.0 Total Hip(Left) 10/14/2022 77 0.681 -2.1 -0.083 (-10.8%)# -0.083 (-10.8%)# 12/31/2020 75 0.763 -1.5 Total Hip(Right) 10/14/2022 77 0.637 -2.5 -0.074 (-10.4%)# -0.074 (-10.4%)# 12/31/2020 75 0.711 -1.9 -- *Denotes significance at 95% confidence level, LSC for AP Spine = 0.022 g/cm2, LSC for Total Hip = 0.027 g/cm2 # Denotes dissimilar scan types or analysis methods Impression: The patient has osteoporosis, based on the Right Total Hip T-score. No significant bone loss was observed. Discussion: INCREASED RISK OF FRACTURE. BONE DENSITY IS UNDESIRABLY LOW AT ONE OR MORE SKELETAL SITES, CONSISTENT WITH POSTMENOPAUSAL OSTEOPOROSIS. This patient's lowest T-score meets the World Health Organization's (WHO) criteria for osteoporosis at one or more sites (T-score -2.5 or below). In untreated patients, the risk of osteoporotic fracture increases approximately two-fold for each 1.0 SD decrease in T-score. Low bone density is not the only risk factor for fracture; also consider factors such as patient's age, frailty or poor health, risk of falling, risk of injury, previous osteoporotic fracture, family history of osteoporosis, cigarette smoking, low body weight, etc. Not everyone with low bone mineral density has osteoporosis; osteomalacia and other metabolic bone disorders should also be considered. Patients who have osteoporosis should be evaluated for specific diseases and conditions (secondary causes) that may cause or contribute to bone loss. The [place] [employer]ocrinologists (AACE) and National Osteoporosis Foundation (NOF) recommend pharmacologic intervention for all postmenopausal women whose T-score is in this range. The patient should follow a healthful lifestyle (good nutrition with adequate calcium and vitamin D, and appropriate weight-bearing exercise). Follow-Up: Consider a repeat BMD and Vertebral Fracture Assessment (VFA) exam in 2 years or sooner if medically necessary, to reassess this patient's status. Reported by: ADÁN LINARES M.D. on 10/14/2022 4:43:00 PM.
== END ==
PROVIDERS: Family Provider Physician Assistant; PCP Student in an Organized Health Care Education/Training Program; Referring Provider Specialist/Technologist Athletic Trainer; Visit Provider Specialist/Technologist Athletic Trainer
DX: M85.89 Other specified disorders of bone density and structure, multiple sites (principal)
CPT/HCPCS: 77080